=== PATIENT | male | born 1990 | race Caucasian/White ===

== ENCOUNTER 2023-09-09 00:05 | Emergency (ER) | payer SELFPAY ==
[~2023-09-09] VITALS: Ht 185.4 cm; Wt 108.9 kg
[2023-09-09 00:12] VITALS: BP_SYST 140; PULSE 98; RESP 16; TEMP 96.5; O2SAT 95
[2023-09-09] MEDS: NACL 0.9% 1,000 ML IV ONE (01:07)
[2023-09-09 01:51] VITALS: BP_SYST 115; PULSE 110; RESP 16; TEMP 96.5; O2SAT 98
== END 2023-09-09 01:50 | disposition home or self-care (01) ==
LOC: SED 00:05
DX: F41.9 Anxiety disorder, unspecified (principal); R00.2 Palpitations
CPT/HCPCS: 99283; 96360; J7030